=== PATIENT | male | born 1960 | race African-American/Black ===

== ENCOUNTER 2017-01-14 16:39 | Observation (INO) | payer OTHER ==
[~2017-01-14] VITALS: Ht 182.9 cm; Wt 101.8 kg
[2017-01-14 16:40] VITALS: BP 173/98; TEMP 97.6
[2017-01-14 17:13] LABS: PLATELET COUNT 203 K/uL (142-355)
[2017-01-14 17:19] LABS: POTASSIUM 4.2 mmol/L (3.6-5.2); SODIUM 137 mmol/L (136-145)
[2017-01-14 17:36] LABS: PARTIAL THROMBOPLASTIN TIME 25.7 SECONDS (24.5-33.6)
[2017-01-14 18:28] VITALS: BP 128/79
[2017-01-14 20:00] VITALS: BP 123/72; TEMP 98.1
[2017-01-14 21:08] VITALS: BP 123/72; TEMP 98.1; Ht 182.9 cm; Wt 101.8 kg
[2017-01-14 23:59] VITALS: BP 122/79; TEMP 97.8
[2017-01-15] MEDS ORDERED: LOSA50TA PO (03:14)
[2017-01-15] MEDS ORDERED: ALAVERT10 M2 PO (03:14)
[2017-01-15] MEDS ORDERED: GABA300C2 PO (03:21)
[2017-01-15] MEDS ORDERED: GLIP10TA55 PO (03:21)
[2017-01-15] MEDS ORDERED: METFORMIN ER1000 MG PO (03:22)
[2017-01-15 04:00] VITALS: BP 130/83; TEMP 97.8
[2017-01-15 08:00] VITALS: BP 134/81; TEMP 97.6
[2017-01-15 08:51] LABS: PLATELET COUNT 181 K/uL (142-355)
[2017-01-15 09:48] LABS: POTASSIUM 4.2 mmol/L (3.6-5.2); SODIUM 135 mmol/L (136-145)
[2017-01-15 12:00] VITALS: BP 132/78; TEMP 98
== END 2017-01-15 16:37 | disposition home or self-care (01) ==
LOC: ED 16:39 → MED/SURG 17:40
PROVIDERS: Emergency Medicine; ADMIT Family Medicine
DX: R07.89 Other chest pain (principal); R00.1 Bradycardia, unspecified; I10 Essential (primary) hypertension; K21.9 Gastro-esophageal reflux disease without esophagitis; M15.8 Other polyosteoarthritis; E11.9 Type 2 diabetes mellitus without complications
CPT/HCPCS: 36415; 80053; 80307; 81000; 82550; 84484; 85027; 85610; 85730; 93005; 94760; 96365; 96366; 99220; 99283; G0378; G0479; J1650

== ENCOUNTER 2019-05-16 09:25 | Outpatient (CLI) | payer OTHER ==
[~2019-05-16 09:25] MED LIST: ALAVERT10 M2 PO; GABA300C2 PO; GLIP10TA55 PO; LOSA50TA PO; METFORMIN ER1000 MG PO
== END 2019-05-16 23:45 | disposition home or self-care (01) ==
LOC: LABW 09:25
DX: B35.1 Tinea unguium (principal)
CPT/HCPCS: 36415; 84450; 84460

== ENCOUNTER 2019-06-14 20:56 | Outpatient (CLI) | payer OTHER ==
[2019-06-14] MEDS ORDERED: INSU100I2 SC (23:43)
== END 2019-06-14 20:59 | disposition short-term general hospital (02) ==
LOC: AMB 20:56
DX: R55 Syncope and collapse (principal); E16.1 Other hypoglycemia; R41.82 Altered mental status, unspecified
CPT/HCPCS: A0425; A0427

== ENCOUNTER 2019-06-14 21:08 | Observation (INO) | payer OTHER ==
[~2019-06-14] VITALS: Ht 182.9 cm; Wt 99.5 kg
[2019-06-14 21:19] VITALS: BP 142/89; TEMP 97.4
[2019-06-14 21:28] LABS: PLATELET COUNT 283 K/uL (142-355)
[2019-06-14 21:31] LABS: POTASSIUM 4.1 mmol/L (3.6-5.2); SODIUM 139 mmol/L (136-145)
[2019-06-14 21:45] VITALS: BP 135/70
[2019-06-14 22:19] VITALS: BP 112/64; TEMP 98.2
[2019-06-14 22:49] VITALS: BP 111/74
[2019-06-14 23:07] VITALS: BP 129/71; TEMP 98.1; Ht 182.9 cm; Wt 99.5 kg
[2019-06-14] MEDS ORDERED: INSU100I2 SC (23:43)
[2019-06-15 00:03] VITALS: BP 129/71; TEMP 98.1
[2019-06-15 04:05] VITALS: BP 111/72; TEMP 97.8
[2019-06-15 08:04] VITALS: BP 133/82; TEMP 97.5
[2019-06-15 12:26] VITALS: BP 119/73; TEMP 97.9
== END 2019-06-15 15:06 | disposition home or self-care (01) ==
LOC: ED 21:08 → MED/SURG 22:10
PROVIDERS: Emergency Medicine; ADMIT Family Medicine
DX: E11.649 Type 2 diabetes mellitus with hypoglycemia without coma (principal); R55 Syncope and collapse; M62.82 Rhabdomyolysis; D72.828 Other elevated white blood cell count; R41.0 Disorientation, unspecified; I10 Essential (primary) hypertension; Z72.0 Tobacco use; J44.9 Chronic obstructive pulmonary disease, unspecified; Z79.899 Other long term (current) drug therapy
CPT/HCPCS: 80053; 80307; 81000; 82550; 82553; 82948; 82962; 83874; 84484; 85027; 93005; 96365; 96366; 96374; 99220; 99284; G0378; J7060

== ENCOUNTER 2019-06-16 08:38 | Outpatient (CLI) | payer OTHER ==
[~2019-06-16 08:38] MED LIST changes: +INSU100I2 SC
== END 2019-06-16 13:00 | disposition home or self-care (01) ==
LOC: LABW 08:38
DX: B35.1 Tinea unguium (principal)
CPT/HCPCS: 36415; 84450; 84460

== ENCOUNTER 2022-07-19 11:06 | Outpatient (CLI) | payer OTHER | END 2022-07-19 19:20 | disposition home or self-care (01) | LOC: RAD 11:06 | PROVIDERS: ATTEND Nurse Practitioner Family | DX: M25.511 Pain in right shoulder (principal) ==

== ENCOUNTER 2022-11-17 08:16 | Outpatient (CLI) | payer OTHER | END 2022-11-17 19:12 | disposition home or self-care (01) | LOC: MRI 08:16 | PROVIDERS: ATTEND Physician Assistant | DX: M75.121 Complete rotator cuff tear or rupture of right shoulder, not specified as traumatic (principal) ==

== ENCOUNTER 2023-02-15 13:14 | Observation (INO) | payer OTHER ==
[~2023-02-15] VITALS: Ht 182.9 cm; Wt 103.2 kg
[2023-02-15] VITALS (7 sets, daily range): BP systolic 133–206; BP diastolic 69–99; TEMP 97.3–98.6; Ht 182.9 cm; Wt 103.2 kg
[2023-02-15 14:02] LABS: PLATELET COUNT 256 K/uL (142-355)
[2023-02-15 14:21] LABS: POTASSIUM 3.7 mmol/L (3.6-5.2)
[2023-02-15] MEDS ORDERED: MOBIC15 MG PO (18:12)
[2023-02-15] MEDS ORDERED: AMLODIPINE BESYLATE PO (18:12)
[2023-02-15] MEDS ORDERED: NITR0.4S2 SL (18:15)
[2023-02-15] MEDS ORDERED: LYRICA150 MG PO (18:16)
[2023-02-15] MEDS ORDERED: METF100038 PO (18:17)
[2023-02-15] MEDS ORDERED: NEXIUM 24HR20 MG PO (18:18)
[2023-02-15] MEDS ORDERED: LOVASTATIN10 MG PO (18:20)
[2023-02-15] MEDS ORDERED: AMITRIPTYLINE H50 MG PO (18:21)
[2023-02-15] MEDS ORDERED: LANTUS100 UNIT/M SC (18:24)
[2023-02-16 03:40] VITALS: BP 151/76; TEMP 98.2
[2023-02-16 07:00] VITALS: BP 152/87; TEMP 97.6
[2023-02-16] MEDS ORDERED: LANTUS100 UNIT/M SC (10:57)
== END 2023-02-16 12:35 | disposition home or self-care (01) ==
LOC: ED 13:14 → MED/SURG 15:51
PROVIDERS: Emergency Medicine; ADMIT Internal Medicine; ATTEND Internal Medicine
DX: E11.649 Type 2 diabetes mellitus with hypoglycemia without coma (principal); Z79.4 Long term (current) use of insulin; R41.82 Altered mental status, unspecified; I10 Essential (primary) hypertension; K21.9 Gastro-esophageal reflux disease without esophagitis; G62.89 Other specified polyneuropathies; F32.89 Other specified depressive episodes; F17.210 Nicotine dependence, cigarettes, uncomplicated
CPT/HCPCS: 80053; 80307; 81002; 82948; 83880; 84484; 85027; 87635; 93005; 99221; 99284; G0378; U0003

== ENCOUNTER 2023-06-26 09:21 | Outpatient (CLI) | payer OTHER ==
[~2023-06-26 09:21] MED LIST changes: +AMITRIPTYLINE H50 MG PO; +AMLODIPINE BESYLATE PO; +LANTUS100 UNIT/M SC; +LOVASTATIN10 MG PO; +LYRICA150 MG PO; +METF100038 PO; +MOBIC15 MG PO; +NEXIUM 24HR20 MG PO; +NITR0.4S2 SL
== END 2023-06-26 19:03 | disposition home or self-care (01) ==
LOC: RAD 09:21
PROVIDERS: ATTEND Nurse Practitioner Family
DX: R07.89 Other chest pain (principal); R22.32 Localized swelling, mass and lump, left upper limb; M25.522 Pain in left elbow; W01.198A Fall on same level from slipping, tripping and stumbling with subsequent striking against other object, initial encounter; M48.062 Spinal stenosis, lumbar region with neurogenic claudication; M47.816 Spondylosis without myelopathy or radiculopathy, lumbar region; M54.16 Radiculopathy, lumbar region; M54.12 Radiculopathy, cervical region; M47.812 Spondylosis without myelopathy or radiculopathy, cervical region

== ENCOUNTER 2023-07-09 08:20 | Outpatient (CLI) | payer OTHER ==
[2023-07-09 08:49] LABS: PLATELET COUNT 208 K/uL (142-355)
== END 2023-07-09 19:02 | disposition home or self-care (01) ==
LOC: LABW 08:20 → MRI 09:00 → LABW 19:02
PROVIDERS: ATTEND Student in an Organized Health Care Education/Training Program
DX: E11.69 Type 2 diabetes mellitus with other specified complication (principal)
CPT/HCPCS: 36415; 80053; 80061; 81002; 83036; 84439; 84443; 85027